=== PATIENT | female | born 1970 | race Two or more races ===

== ENCOUNTER 2024-08-06 08:30 | Day surgery (SDC) | payer BC, SELFPAY ==
[2024-08-05 10:18] LABS: HCG Qualitative,Urine Negative
[2024-08-06] VITALS (9 sets, daily range): BP systolic 120–158; BP diastolic 72–97; PULSE 54–84; RESP 12–19; TEMP 36.6–36.9; O2SAT 95–100; BMI 36.2
[2024-08-06] MEDS: MIDAZOLAM INJ 1 MG/ML VIAL 2 ML (ASD USE ONLY) 2 MG IV (11:17)
[2024-08-06] MEDS: fentaNYL CIT INJ 50 mCg/ML AMP 2ML (ASD USE ONLY) IV (11:17)
[2024-08-06] MEDS: DiphenhydrAMINE INJ 50 MG/ML VIAL 25 MG IV (11:17)
== END 2024-08-06 12:25 | disposition home or self-care (01) ==
PROVIDERS: PCP Internal Medicine; Referring Provider Specialist; Visit Provider Specialist
PROC: 0DBE8ZX Excision of Large Intestine, Via Natural or Artificial Opening Endoscopic, Diagnostic (ICD-10-PCS; CPT 45380; principal; 2024-08-06 09:45)
DX: Z12.11 Encounter for screening for malignant neoplasm of colon (principal); K64.8 Other hemorrhoids
CPT/HCPCS: 45378; 81025; J1200; J2250; J3010